=== PATIENT | male | born 1980 | race Caucasian/White ===

== ENCOUNTER 2021-07-23 07:55 | Emergency (ER) | payer OTHER, SELFPAY ==
[2021-07-23 07:57] VITALS: BP 224/129; PULSE 83; RESP 14; TEMP 35.6; O2SAT 96; BMI 45.1
--- NOTE | 2021-07-23 08:15 | EDS_ITS ---
HPI History of Present Illness Chief Complaint: Upper Extremity Injury Informant: patient Onset/Context/Timing Onset: Weeks (2) Context: Gradual Onset Timing: Continuous Quality of Pain: Aching Location: Anterior left shoulder Current Severity: Moderate Maximum Severity: Moderate Worsened by: Overhead movements especially Relieved by: Remaining still Associated Symptoms Associated Symptoms: Negative for Parasthesia, Weakness and Loss of Funtion Narrative Narrative: [id number]-[id number] male has had gradual onset of pain in his shoulder for the past 2 weeks. 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 He denies any chest pain, shortness of breath, numbness or tingling, weakness, or any other symptoms. [facility] Medical History (Updated 07/23/21 @ 08:[address] Tyron Méndez MD) HTN (hypertension) Type 2 diabetes mellitus Home Medications diclofenac sodium [Voltaren Arthritis Pain] 2 g TOPICAL BID PRN PRN #100 g 07/23/21 [Rx Last Taken Unknown] meloxicam 7.5 mg PO DAILY #14 tab 07/23/21 [Rx Last Taken Unknown] Allergy/AdvReac Type Severity Reaction Status Date / Time No Known Allergies Allergy Verified 07/23/21 07:57 Social History (Updated 07/23/21 @ 08:[address] Tyron Méndez MD) Smoking Status: Never smoker ROS ROS ED Constitutional Constitutional ED: Denies chills or fever(s) Musculoskeletal Musculoskeletal: Reports extremity pain; Denies neck pain Integumentary Denies Abrasions, rash or wounds Neurologic Neurologic: Denies paresthesias or weakness EXAM Physical Exam Const Vital Signs: 07/23/21 07:57 Temperature 96.1 F L Temperature Source Temporal Pulse Rate 83 Respiratory Rate 14 Blood Pressure 224/129 H Blood Pressure Mean 160 Pulse Ox 96 Oxygen Delivery Method Room Air Positive well nourished and well developed General Appearance ED: well developed and NAD Neck full ROM and supple Back/Spine normal ROM and normal to inspection Extremity Extremity Narrative: Excellent distal pulses both upper extremities. Neurovascu larly intact distally. Full range of motion, but limited by pain at extreme of abduction left shoulder, as well as overhead movement. Positive Speed test, positive Beauchamp Neer impingement test elicits pain, negative Yergason. No bony tenderness. No deformity. No subacromial tenderness/pain. No acromioclavicular joint tenderness. Neuro oriented x3, no focal motor deficits and no sensory deficits noted Sensorium / Orientation: alert Psych mental status grossly normal and thought process normal Skin no wounds Rashes: no rashes MDM MDM MDM Narrative Medical decision making narrative: Main area of tenderness is in the coracoid process area. Possible that he has short head biceps tendinitis, subacromial bursitis, also could be supraspinatus and/or infraspinatus injury. At this time I would recommend anti-inflammatories, since he is a diabetic I will just do a 2-week course of low-dose Mobic, and also prescribed him a topical NSAID. Fo llow-up with orthopedics and/or physical therapy for which she will need to see his primary. His blood pressure is very elevated here, we will repeat that and address it if needed. Discharge Plan Triage Chief Complaint: Upper Extremity Injury ED Provider: Tyron Méndez Dx/Rx/DC Orders Clinical Impression: Acute pain of left shoulder, Episode of hypertension Instructions: ED Shoulder Pain, Uncertain Cause Prescriptions: New meloxicam 7.5 mg tablet 7.5 mg PO DAILY Qty: 14 RF: 0 diclofenac sodium [Voltaren Arthritis Pain] 1 % gel 2 g topical BID PRN PRN (Reason: left shoulder pain) Qty: 100 RF: 0 Primary Care Provider: Bethany Carreno Referrals: Ariel Heller DO [STAFF PHYSICIAN] - (Call for orthopedic appointment/evaluation) Doctor,Your [STAFF PHYSICIAN] - (Call for appointment and/or physical therapy referral) Disposition Disposition: Home, Self Care Discharge Date/Time: 07/23/21 08:39
[2021-07-23 08:30] VITALS: BP 168/103
== END 2021-07-23 08:39 | disposition home or self-care (01) ==
LOC: ED 08:38
PROVIDERS: Emergency Provider Emergency Medicine; PCP Family Medicine; Visit Provider Emergency Medicine
DX: M25.512 Pain in left shoulder (principal); E11.9 Type 2 diabetes mellitus without complications; I10 Essential (primary) hypertension; Z79.899 Other long term (current) drug therapy
CPT/HCPCS: 99282